=== PATIENT | female | born 1995 | race Caucasian/White ===

== ENCOUNTER 2017-11-21 01:01 | Emergency (ER) | payer OTHER ==
[2017-11-21 01:01] VITALS: BP 99/62
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
--- NOTE | 2017-11-21 07:15 | RAD ---
Right hand, 3 views, 11/21/2017: History: Hand injury, pain There is moderate soft tissue swelling over the dorsum of the hand in the distal metacarpal region. No acute fracture or dislocation is identified. IMPRESSION: No acute bony abnormality is detected.
== END 2017-11-21 01:35 | disposition home or self-care (01) ==
LOC: ER 01:01
DX: S60.221A Contusion of right hand, initial encounter (principal); W22.01XA Walked into wall, initial encounter; Y93.89 Activity, other specified; Y99.8 Other external cause status; Y92.89 Other specified places as the place of occurrence of the external cause
CPT/HCPCS: 73130; 81025; 99284-25

== ENCOUNTER 2018-03-28 18:31 | Emergency (ER) | payer OTHER ==
[~2018-03-28] VITALS: Ht 162.6 cm; Wt 81.6 kg
[2018-03-28 18:37] VITALS: BP 139/83
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
[2018-03-28 19:35] LABS: BACTERIA,URINE 0 /HPF (0-FEW); BILIRUBIN,URINE NEG (NEG); CLARITY,URINE HAZY; COLOR,URINE STRAW; GLUCOSE,URINE NEG (NEG); NITRITE,URINE NEG (NEG); RBC,URINE 0 /HPF (0-2); SQUAMOUS EPITHELIAL CELL,UR OCC /LPF; UROBILINOGEN,URINE 0.2 mg/dL (0.2 mg/dL); WBC,URINE 0 /HPF (0-4)
--- NOTE | 2018-03-28 20:59 | RAD ---
Indication:POST TRAUMATIC BILAT FLANK PAIN TECHNIQUE: Grayscale, color Doppler and spectral waveform is of the renal obtained. COMPARISON:None FINDINGS: The right kidney measures 11.8 x 5.0 x 4.3 cm without hydronephrosis. IVC is visualized. No aortic aneurysm. The left kidney measures 12.6 x 4.8 x 5.3 cm without hydronephrosis. Bladder is decompressed limiting evaluation. Bilateral digital jets are not seen. Single intrauterine noted. IMPRESSION: No acute findings. Electronically signed by: Alcides Wallace DO (03/28/2018 8:57 PM) [facility]
--- NOTE | 2018-03-28 21:09 | RAD ---
Indication: Posttraumatic pain. patient. TECHNIQUE: Ultrasound OB COMPARISON: None FINDINGS: Cervix measures 6 cm in length and is closed. Single intrauterine is seen in the cephalic position. Placenta is anterior. Bandlike soft tissue is seen in the placenta. The right ovary measures 3.3 x 2.1 x 2.5 cm and is within normal limits. The biparietal diameter measures 3.63 cm corresponding to gestation age of 17 weeks 1 day. Head circumference measures 13.05 cm corresponding to gestation age of 16 weeks 5 days. Heart rate measures 155 bpm. Stomach, bladder are visualized. Abdominal circumference measures 11.26 m corresponding to gestation age of 17 weeks 1 day. Femoral length measures 2.32 cm corresponding to gestation age of 17 weeks 0 day. Cord insertion is seen. Amniotic fluid within normal limits. IMPRESSION: 1. Single viable intrauterine with gestational age of 17 weeks 0 days and due date of 09/05/2018. 2. Bandlike soft tissue in the placenta may represent a placental band or synechiae. Electronically signed by: Alcides Wallace DO (03/28/2018 9:07 PM) [facility]
== END 2018-03-28 21:40 | disposition home or self-care (01) ==
LOC: ER 18:31
DX: O9A.212 Injury, poisoning and certain other consequences of external causes complicating pregnancy, second trimester (principal); S39.91XA Unspecified injury of abdomen, initial encounter; O99.512 Diseases of the respiratory system complicating pregnancy, second trimester; J45.909 Unspecified asthma, uncomplicated; Z3A.17 17 weeks gestation of pregnancy; Y08.89XA Assault by other specified means, initial encounter; Y93.89 Activity, other specified; Y92.89 Other specified places as the place of occurrence of the external cause; Y99.8 Other external cause status
CPT/HCPCS: 76770; 76815; 81001; 87086; 99285